=== PATIENT | female | born 1965 | race Caucasian/White ===

== ENCOUNTER 2021-09-06 10:46 | Outpatient (CLI) | payer OTHER, SELFPAY ==
--- NOTE | 2021-09-06 10:15 | DI.RAD_ITS ---
Exam(s) XR KNEE LT 3V AP,LAT,LASHAY EXAM: XR KNEE LT 3V AP,LAT,LASHAY CLINICAL HISTORY: right knee pain. TECHNIQUE: 2D digital imaging was performed of the left knee. Four images were obtained. AP, later al and merchant's views were obtained. COMPARISON: No previous for comparison. FINDINGS: BONES: No acute fracture is present. No bony destructive lesion is seen. JOINTS: The knee is normally aligned. Mild narrowing of the medial joint compartment. Tiny spurs are seen at all 3 joint compartments. SOFT TISSUE: Normal. IMPRESSION: Mild degenerative changes of the left knee. DATA REPOSITORY: RADIATION DOSE DELIVERED:
--- NOTE | 2021-09-06 10:15 | DI.RAD_ITS ---
Exam(s) XR KNEE RT 3V AP,LAT,LASHAY EXAM: XR KNEE RT 3V AP,LAT,LASHAY CLINICAL HISTORY: left knee pain. TECHNIQUE: 2D digital imaging was performed of the right knee. Four views obtained. AP, lateral and merchant's views were obtained. COMPARISON: No previous for comparison. FINDINGS: BONES: No acute fracture is present. No bony destructive lesion is seen. There is mild lateral tilt o f the patella. JOINTS: The knee is normally aligned. There is mild narrowing of the medial femoral tibial joint spac e. Periarticular spurring is seen in all 3 joint compartments. SOFT TISSUE: Normal. IMPRESSION: Moderate degenerative changes of the right knee. DATA REPOSITORY: RADIATION DOSE DELIVERED:
== END 2021-09-06 10:47 | disposition home or self-care (01) ==
LOC: DIORS 10:46
PROVIDERS: PCP Nurse Practitioner Family; Referring Provider Nurse Practitioner Family; Visit Provider Student in an Organized Health Care Education/Training Program
DX: M25.561 Pain in right knee (principal); M25.562 Pain in left knee; M17.0 Bilateral primary osteoarthritis of knee
CPT/HCPCS: 73562

== ENCOUNTER 2021-09-15 01:47 | Outpatient (CLI) | payer OTHER, SELFPAY ==
--- NOTE | 2021-09-15 06:30 | DI.MRI_ITS ---
Exam(s) MR LOWER JOINT LT WO EXAM: MR LOWER JOINT LT WO CLINICAL HISTORY: L KNEE PAIN,rupture of anterior cruciate ligament, [id number]. TECHNIQUE: Multiplanar multisequence MRI was performed. COMPARISON: CR XR KNEE LT 3V AP,LAT,LASHAY from 09/06/2021 FINDINGS: BONES: There is no fracture or contusion pattern. Mild periarticular spurring. JOINTS: Articular cartilage: Thinning of cartilage greatest at patellar apex.. A moderate-sized join t effusion is present. TENDONS: Extensor mechanism: Unremarkable. Medial retinaculum: Unremarkable. Lateral retinaculum: Unremarkable. Popliteus: Unremarkable. MUSCLES: Unremarkable. MENISCI: Posterior horn of the medial meniscus is diminutive. There is is apparent displaced or free or flipped fragment seen beneath the posterior cruciate ligament.. The lateral meniscus shows mild degenerative intrasubstance signal. SOFT TISSUES: Unremarkable. LIGAMENTS: Anterior Cruciate: Surrounding fluid. Edema distally. No discrete tear visible.. Posterior Cruciate: Unremarkable. Medial Collateral:Surrounding fluid. No discrete tear.. Lateral Collateral: Unremarkable. OTHER: Extensor mechanism is intact. IMPRESSION: Tear of the posterior horn of the medial meniscus, bucket-handle type tear versus medially displaced fragment. Question of sprains of the anterior cruciate and and medial collateral ligaments. Chondromalacia of the patellar cartilage. DATA REPOSITORY:
== END 2021-09-15 02:07 ==
PROVIDERS: PCP Nurse Practitioner Family; Visit Provider Student in an Organized Health Care Education/Training Program
DX: M25.562 Pain in left knee (principal); S83.512A Sprain of anterior cruciate ligament of left knee, initial encounter; M25.462 Effusion, left knee; S83.242A Other tear of medial meniscus, current injury, left knee, initial encounter; S83.412A Sprain of medial collateral ligament of left knee, initial encounter; M22.42 Chondromalacia patellae, left knee; X58.XXXA Exposure to other specified factors, initial encounter
CPT/HCPCS: 73721